=== PATIENT | female | born 1935 | race American Indian/Alaskan Native ===

== ENCOUNTER 2017-02-16 09:49 | Observation (INO) | payer MEDICARE ==
[2017-02-16] MEDS ORDERED: NACL BACTERIOSTATIC INFILTRATI ONE (10:57)
[2017-02-16] MEDS ORDERED: ANCEF/STERILE WATER 2 GM/20 ML IV NR (11:00)
[2017-02-16] MEDS ORDERED: NEO SYNEPHRINE/NS Syringe(OR USE) IV ONE (12:30)
[2017-02-16] MEDS ORDERED: DIPRIVAN 10 MG/ML IV ONE (12:39)
[2017-02-16] MEDS ORDERED: SUBLIMAZE ONE (12:39)
[2017-02-16] MEDS ORDERED: XYLOCAINE MPF 2% ONE (12:40)
[2017-02-16] MEDS ORDERED: ZOFRAN ONE (12:41)
[2017-02-16] MEDS ORDERED: DECADRON ONE (12:41)
[2017-02-16] MEDS ORDERED: SUBLIMAZE IV ONE (12:47)
--- NOTE | 2017-02-16 12:47 | Anesthesia Day of Surgery ---
Anesthesia Day of Surgery - Day of Surgery Patient Examined: Yes Patient H&P Reviewed: Yes Patient is NPO: Yes
--- NOTE | 2017-02-16 12:47 | Anesthesia Consultation ---
Anesthesia Consult and Med Hx Date of service: 02/16/17 - Airway Anesthetic Teeth Evaluation: Good ROM Head & Neck: Adequate Mental/Hyoid Distance: Adequate Mallampati Class: Class II Intubation Access Assessment: Probably Good - Pulmonary Exam CTA: Yes - Cardiac Exam Cardiac Exam: RRR - Pre-Operative Health Status ASA Pre-Surgery Classification: ASA3 Proposed Anesthetic Plan: General - Pulmonary Hx Asthma: No COPD: No Hx Pneumonia: No - Cardiovascular System Hx Hypertension: Yes (9Y) - Central Nervous System Hx Back Pain: Yes Hx Psychiatric Problems: No - Gastrointestinal Hx Ulcer: Yes (PEPTIC) - Endocrine Hx End Stage Renal Disease: No Hx Hypothyroidism: Yes - Hematic Hx Anemia: Yes - Other Systems Hx Alcohol Use: No Hx Substance Use: No Hx Cancer: Yes
[2017-02-16] MEDS ORDERED: PEPCID PO NR (13:00)
[2017-02-16] MEDS ORDERED: NEURONTIN PO NR (13:00)
[2017-02-16] MEDS ORDERED: VERSED IV NR (13:00)
[2017-02-16] MEDS ORDERED: NACL 0.9% 1000 ML 1,000 ML IV SCH (13:00)
[2017-02-16] MEDS ORDERED: WATER FOR IRRIG STERILE IR ONE (13:36)
[2017-02-16] MEDS ORDERED: ANCEF IV ONE (13:36)
[2017-02-16] MEDS ORDERED: ROBINUL ONE (13:54)
[2017-02-16] MEDS ORDERED: NACL 0.9% 1000 ML 1,000 ML ONE (14:47)
[2017-02-16] MEDS ORDERED: BENADRYL PO PRN (15:25)
[2017-02-16] MEDS ORDERED: TYLENOL PO PRN (15:25)
[2017-02-16] MEDS ORDERED: REGLAN PO PRN (15:25)
[2017-02-16] MEDS ORDERED: SODIUM CHLORIDE FLUSH SYRINGE 10 ML IV PRN (15:25)
[2017-02-16] MEDS ORDERED: ZOFRAN IV PRN (15:25)
[2017-02-16] MEDS ORDERED: PERCOCET 5/325 PO PRN (15:25)
--- NOTE | 2017-02-16 15:25 | Short Stay Summary ---
Short Stay Documentation Date of service: 02/16/17 - History H&P: obtained from office - Allergies and Medications Current Medications: Allergies No Known Allergies Allergy (Verified 02/10/17 15:43) Home Medications Medication Instructions Recorded Confirmed Last Taken Type Aspirin [Aspirin BABY CHEW TAB] 81 mg PO DAILY 11/15/14 02/10/17 09/25/15 History Gabapentin [Neurontin] 300 mg PO BID 11/15/14 02/16/17 02/15/17 History Levothyroxine [Synthroid] 50 mcg PO QAM 11/15/14 02/16/17 02/16/17 07:00 History Pravastatin [Pravachol] 40 mg PO DAILY 11/15/14 02/16/17 02/15/17 History Sitagliptin Phosphate [Januvia] 100 mg PO DAILY 11/15/14 02/16/17 02/16/17 History Triamterene [Dyrenium] 32.5 mg PO DAILY 11/15/14 02/16/17 02/15/17 History Naproxen [Naprosyn TAB] 500 mg PO BID PRN 09/25/15 02/10/17 09/25/15 History HYDROcodone/APAP 5-325 [Mcneal 1 each PO Q6HR PRN #30 tablet 02/16/17 Unknown Rx 5/325] Active Medications Cefazolin Sodium (Ancef/Sterile Water 2 Gm/20 Ml) 2 gm IV PREOP NR Stop: 02/16/17 23:59 Famotidine (Pepcid) 20 mg PO PREOP NR Stop: 02/16/17 23:59 Last Admin: 02/16/17 13:03 Dose: 20 mg Gabapentin (Neurontin) 150 mg PO PREOP NR Stop: 02/16/17 23:59 Last Admin: 02/16/17 13:04 Dose: 150 mg Sodium Chloride (Nacl 0.9% 1000 Ml) 1,000 mls @ 100 mls/hr IV DIRECT HUYEN Last Admin: 02/16/17 13:04 Dose: 100 mls/hr Midazolam HCl (Versed) 2 mg IV PREOP NR Stop: 02/16/17 23:59 Last Admin: 02/16/17 13:03 Dose: 2 mg - Brief post op/procedure progress note Date of procedure: 02/16/17 Pre-op diagnosis: 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 Post-op diagnosis: same Procedure: Left total mastectomy with SLNB Anesthesia: GETA Findings: left mastectomy with 3 breast clips present; 3 SLNs and negative for malignancy on frozen section Surgeon: RADHA DOAN Paper Testing Supervisor: LIZETT BURNHAM Estimated blood loss: minimal Pathology: list (left mastectomy and SLNB) Specimen disposition: to lab Condition: stable - Disposition Condition at discharge: Good Disposition: DC/TX-02 SHRT-TRM GEN HOSP IP Short Stay Discharge Plan Activity: other (no heavy lifting) Diet: regular Wound: other (keep incision clean and dry; may shower in 24 hours; no baths, pools or lakes) Follow up with: PRIMARY CAREMD [Primary Care Provider] - 7 Days RADHA DOAN MD [Staff Physician] - 7 Days Prescriptions: HYDROcodone/APAP 5-325 [Mcneal 5/325] 1 each PO Q6HR PRN #30 tablet PRN Reason: Pain
[2017-02-16] MEDS ORDERED: MORPHINE IV PRN (15:27)
--- NOTE | 2017-02-16 15:33 | Operative Report ---
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 Asst.: Carolynn Cooper MD Anesthesia: Gen. Findings: 3 left breast clips present within left total mastectomy. 3 sentinel lymph nodes identified and negative for malignancy on frozen section of pathology Complications: None Drains: One 19 Fr Estimated blood loss: Minimal Disposition: PACU in good condition Indications for operative procedure: This is an 81-year-old lady with stage I multicentric left breast cancer of the upper outer quadrant, IDCA [id number] ER/PA positive. Recommendations were to proceed with left total mastectomy with SLN staging given multicentric breast cancer. Patient declined plastic reconstructive surgery. Procedure in detail: Anesthesia placed left pectoral muscle block prior to going to the operating room. The patient was taken to the operating room and was placed supine. Gen. anesthesia was administered. The left nipple was injected with radioisotope. Left breast was prepped and draped in the normal postoperative fashion. Timeout was performed. Typical mastectomy incision marking was made. A skin incision was made with a 10 blade knife and dissection taken down to the subcutaneous tissues. First began raising of the superior flap to the level of the clavicle superiorly and posteriorly to the pectoralis muscle. Followed by raising of the medial flap to the level of the sternum and posteriorly to the pectoralis muscle. Followed by raising of the lateral flap to the level of the latissimus dorsi muscle and taken down posteriorly. The gamma probe was inserted into the axilla and 3 sentinel lymph nodes were identified and dissected free, all remaining counts were less than 10% of the highest SLN. Lymph nodes were sent to pathology with findings negative for malignancy noted on frozen section. Then proceeded with raising of the inferior flap to the level of the inframammary fold taken posterior to the pectoralis muscle. The mastectomy/breast was removed from the pectoralis muscle without incident. The specimen was appropriately marked and sent to radiology with findings of 3 breast clips present and sent to pathology. Hemostasis was obtained with the bovie cautery. A 19 Afghan AAKASH drain was placed. The subcutaneous tissues were approximated and closed using interrupted 3-0 Vicryl. The skin was then closed using a running 4-0 Monocryl followed by skin affix. She was awaken from anesthesia without any complications and transported to PACU in good condition.
--- NOTE | 2017-02-16 15:36 | Mammography Report ---
SPECIMEN RADIOGRAPH RIGHT BREAST: 02/16/17 09:49:00 CLINICAL: Right mastectomy specimen. FINDINGS: Three biopsy clips are identified within the specimen. Pulmonary tail, please refer to the operative report.
[2017-02-16] MEDS: COLACE PO SCH (21:41)
[2017-02-16] MEDS: LACTATED RINGERS 1,000 ML IV SCH (21:42)
[2017-02-17] MEDS: LACTATED RINGERS 1,000 ML IV SCH (05:05)
[2017-02-17] MEDS: COLACE PO SCH (10:09)
[2017-02-17 14:57] VITALS: BP 92/44
--- NOTE | 2017-02-18 14:57 | Progress Note ---
Assessment and Plan This is an 81 year old lady with newly diagnosed Stage I left breast cancer, multicentric of the upper outer quadrant POD#1 left total mastectomy with SLNB. 1. Pain in good control. 2. Left chest incision healing well. 3. AAKASH drain education. 4. OOB to hallway. 5. D/C planning for today. 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 Yesterday she underwent a left total mastectomy with SLNB. No acute events overnight. Pain well controlled. Objective - Constitutional General appearance: Present: no acute distress - EENT Eyes: PERRL, EOM intact ENT: hearing intact, clear oral mucosa, other (dentures) Ears: bilateral: normal - Neck Neck: supple, normal ROM - Respiratory Respiratory effort: normal Respiratory: bilateral: CTA - Breasts Breasts: other (left chest incision clean, dry and intact; healing well; AAKASH drain to bulb suction) - Cardiovascular Rhythm: regular Extremities: no ischemia, pulses intact, pulses symmetrical, No edema, normal temperature, normal color, Full ROM - Gastrointestinal General gastrointestinal: Present: soft, non-tender, non-distended Rectal Exam: deferred - Genitourinary Female genitourinary: deferred - Integumentary Integumentary: clear, warm, dry - Musculoskeletal Musculoskeletal: strength equal bilaterally - Neurologic Neurologic: CNII-XII intact, moves all extremities - Psychiatric Psychiatric: appropriate mood/affect, intact judgment & insight, memory intact, cooperative
== END 2017-02-17 14:45 | disposition home or self-care (01) ==
LOC: OR 09:49 → OB 15:25
PROVIDERS: ADMIT Surgery; ATTEND Surgery
DX: C50.412 Malignant neoplasm of upper-outer quadrant of left female breast (principal); C50.812 Malignant neoplasm of overlapping sites of left female breast
CPT/HCPCS: 19303; 38525; 64417; 76098; 78800; 82962; 88307; 88309; 88331; 88333; 88342; 96374; 96375; A9541; G0378; J0690; J1100; J2250; J2270; J2370; J2405; J2704; J3010; J7030; J7120